=== PATIENT | male | born 1965 | race Caucasian/White ===

== ENCOUNTER 2018-02-18 15:56 | Inpatient (IN) | payer MEDICARE, OTHER ==
[2018-02-18 16:42] LABS: #Lymphocytes 0.8 thou/uL (1.20-3.40); #Monocytes 0.3 thou/uL (0.11-0.59); #Neutrophils 4.6 thou/uL (1.40-6.50); %Basophils 0.2 % (0.0-1.0); %Eosinophils 0.1 % (0.0-10.0); %Lymphocytes 14.7 % (21.0-51.0); %Monocytes 4.7 % (0.0-10.0); %Neutrophils 80.3 % (42.0-75.0); Hemoglobin 12.5 g/dL (14.0-18.0); Mean Corpuscular HGB CONC 35.1 g/dL (32.0-36.0); Mean Corpuscular Hemoglobin 32.8 pg (27.0-31.0); Mean Corpuscular Volume 93.3 fL (78.0-98.0); Mean Platelet Volume 9.1 fL (7.4-10.4); Platelet Count 174 thou/uL (130-400); RBC Distribution Width 12.5 % (11.5-14.5); Red Blood Cell (RBC) Count 3.81 mill/uL (4.70-6.10); White Blood Cell (WBC) Count 5.7 thou/uL (4.8-10.8)
[2018-02-18 16:43] LABS: Lactate 1.54 mmol/L (0.50-2.20)
--- NOTE | 2018-02-18 16:46 | RAD ---
CHEST ONE VIEW: 02/18/18 HISTORY: Chest pain and cough. COMPARISON: Radiograph 06/02/15. FINDINGS: There is severe dextroscoliosis. Left basilar air space opacity is new from the comparison examinatio n. Severe neurogenic changes of both shoulders. IMPRESSION: Findings concerning for left basilar pneumonia. POS: [facility]
[2018-02-18 16:55] LABS: ALT (SGPT) 34 U/L (8-55); AST (SGOT) 59 U/L (5-34); Albumin 4.1 g/dL (3.5-5.0); Alkaline Phosphatase 126 U/L (40-150); Anion Gap 19 mmol/L (10-20); BUN (Urea Nitrogen) 59 mg/dL (8.4-25.7); Bilirubin, Total 0.3 mg/dL (0.2-1.2); Calc. Creatinine Clearance 0 mL/min (70-130); Calcium 9.3 mg/dL (7.8-10.44); Carbon Dioxide 16 mmol/L (22-29); Chloride 102 mmol/L (98-107); Estimated GFR-MDRD 36; Globulin 4.3 g/dL (2.4-3.5); Glucose 125 mg/dL (70-105); Potassium 3.7 mmol/L (3.5-5.1); Protein, Total 8.4 g/dL (6.0-8.3); Sodium 133 mmol/L (136-145)
[2018-02-18 18:01] LABS: Bilirubin Negative (Negative); Blood, Urine Negative (Negative); Clarity CLEAR (Clear); Glucose, Urine (Dipstick) Negative (Negative); Leukocyte Negative (Negative); Nitrite Negative (Negative); Protein, Urine (Dipstick) 100 mg/dL (Neg-Trace); Specific Gravity, Urine 1.016 (1.002-1.036); Urobilinogen 0.2 mg/dL (0.2-1.0); pH, Urine 5.5 (5.0-9.0)
[2018-02-18 18:03] LABS: Bacteria/HPF None Seen HPF (None Seen); Hyaline Casts/LPF 7-10 HYALINE CAST LPF (0-3 Hyaline); Pathc Cast-AUWi Flag 1.74 (0-2.49); RBC/HPF 0-3 HPF (0-3)
[2018-02-18 18:05] LABS: Renal Epithelial None Seen HPF (0-3); Transitional Epithelial NONE SEEN HPF (0-3)
[2018-02-18] MEDS ORDERED: cefTRIAXone\\ROCEPHIN 1 GM VIAL ONE (18:30)
[2018-02-18] MEDS ORDERED: Azithromycin 500 MG VIAL ONE (18:30)
[2018-02-18] MEDS ORDERED: cefTRIAXone\\ROCEPHIN 500 MG VIAL ONE (18:30)
[2018-02-18] MEDS ORDERED: Oseltamivir 6 MG/ML ORAL SUSP PO SCH (18:45)
[2018-02-18] MEDS ORDERED: Acetaminophen 325 MG TAB ONE (19:46)
[2018-02-18] MEDS ORDERED: Ondansetron PF 4 MG/2 ML Vial IVP PRN (20:53)
[2018-02-18] MEDS ORDERED: Sodium Chloride 0.9% 1,000 ML IV SCH (20:53)
[2018-02-18] MEDS ORDERED: Ondansetron ODT 4 MG TAB SL PRN (20:53)
[2018-02-18] MEDS ORDERED: Acetaminophen 325 MG TAB PO PRN (20:53)
[2018-02-18 21:18] VITALS: BMI 16.6
[2018-02-19] MEDS ORDERED: Diabetic Tussin 200 MG/10 ML UDCUP PO PRN (04:59)
[2018-02-19] MEDS ORDERED: Bisacodyl 10 MG SUPP PR PRN (11:34)
[2018-02-19] MEDS ORDERED: Dextrose 50% Abboject 50 ML SYRINGE SLOW IVP PRN ×2 (11:42→13:54)
[2018-02-19] MEDS ORDERED: HumaLOG 300 UNITS/3 ML VIAL SC PRN (11:42)
[2018-02-19] MEDS ORDERED: Dextrose 5% in Water 1,000 ML IV PRN ×2 (11:42→13:54)
[2018-02-19] MEDS ORDERED: Acetaminophen 325 MG TAB PO PRN (13:55)
--- NOTE | 2018-02-19 17:55 | HP ---
CHIEF COMPLAINT: Cough. HISTORY OF PRESENT ILLNESS: This is a 52-year-old male admitting to the hospital because of cough and chills for approximately one week. The patient states that he also had some diarrhea, however, this has now resolved. The patient states that he has never had these symptoms before. Denies any alleviating or aggravating factors. Denies any other associated symptoms or complaints. Of note, the patient does have a growth abnormality and past medical history of hypertension, headaches, and arthritis. The patient is seen and examined in the hospital room. No family at bedside. ALLERGIES: TO ASPIRIN, CYCLOPHOSPHAMIDE, HYDROCODONE, AND PHENYTOIN. THE PATIENT IS NOT SURE WHAT HAPPENS WHEN HE TAKES ANY ONE OF THESE. REVIEW OF SYSTEMS: All systems reviewed. Pertinent positives in HPI, otherwise negative. FAMILY HISTORY: Noncontributory. SOCIAL HISTORY: Nondrinker, nonsmoker. HOME MEDICATIONS: See MAR. PHYSICAL EXAMINATION: VITAL SIGNS: Blood pressure 101/66, respiratory rate of 20, temperature 98.3, heart rate of 86. GENERAL: The patient lying in bed comfortably, in no distress. Body habitus appears to be that of individual with growth stunting. HEENT: Pupils equal, round, reactive to light and accommodation. Extraocular muscles intact. Oral cavity moist and pink. NECK: Supple, nontender. Mobile thyroid appreciated. CARDIOVASCULAR: Regular rate and rhythm. S1, S2. No murmurs, rubs, or gallops appreciated. PULMONARY: Coarse breath sounds bilaterally. No respiratory distress. No increase in AP diameter. ABDOMEN: Positive bowel sounds. Soft, nontender, nondistended. EXTREMITIES: 2+ peripheral pulses. No cyanosis, clubbing, or edema noted. Arthritis in bilateral hands. LABORATORY DATA: Lab michele, CBC normal. BMP abnormalities, creatinine 1.93. UA positive for some protein, otherwise negative. Chest x-ray shows left basilar pneumonia. ASSESSMENT AND PLAN: 1. Cough, shortness of breath, pneumonia. 2. Hypertension. 3. Arthritis. 4. Fever. PLAN: At this point in time, I am going to admit the patient to hospital floor and start IV antibiotics and IV fluids. Also obtain an echocardiogram and chest x-ray for tomorrow. Labs in a.m. Continue hydration. If renal function worsens, we will obtain renal ultrasound and consider renal consultation as well. The patient wishes to remain a full code at this point in time. We will adjust medical plan of care as the patient's condition progresses throughout his admission. Case and plan discussed with the patient at length. He understood and agreed with this plan. Job ID: [id number]
[2018-02-19] MEDS: Heparin 5,000 UNITS/ML VIAL SC SCH (20:08)
[2018-02-20 07:53] LABS: #Lymphocytes 1.3 thou/uL (1.20-3.40); #Monocytes 0.5 thou/uL (0.11-0.59); #Neutrophils 3.1 thou/uL (1.40-6.50); %Basophils 0.1 % (0.0-1.0); %Eosinophils 0.4 % (0.0-10.0); %Lymphocytes 25.8 % (21.0-51.0); %Monocytes 9.8 % (0.0-10.0); Hemoglobin 10.8 g/dL (14.0-18.0); Mean Corpuscular HGB CONC 34.5 g/dL (32.0-36.0); Mean Corpuscular Hemoglobin 32.4 pg (27.0-31.0); Mean Corpuscular Volume 93.9 fL (78.0-98.0); Mean Platelet Volume 8.5 fL (7.4-10.4); Platelet Count 214 thou/uL (130-400); RBC Distribution Width 12.5 % (11.5-14.5); Red Blood Cell (RBC) Count 3.33 mill/uL (4.70-6.10); White Blood Cell (WBC) Count 4.9 thou/uL (4.8-10.8)
[2018-02-20 08:18] LABS: Anion Gap 14 mmol/L (10-20); BUN (Urea Nitrogen) 11 mg/dL (8.4-25.7); Calc. Creatinine Clearance 61 mL/min (70-130); Calcium 8.5 mg/dL (7.8-10.44); Carbon Dioxide 19 mmol/L (22-29); Chloride 109 mmol/L (98-107); Estimated GFR-MDRD Greater than 90; Glucose 92 mg/dL (70-105); Potassium 3.1 mmol/L (3.5-5.1); Sodium 139 mmol/L (136-145)
[2018-02-20] MEDS: Oseltamivir 75 MG CAP PO SCH (08:38)
[2018-02-20] MEDS: Heparin 5,000 UNITS/ML VIAL SC SCH ×2 (08:39→20:33)
--- NOTE | 2018-02-20 08:49 | RAD ---
CHEST ONE VIEW: Indication: Cough. Comparison: 02-18-18 FINDINGS: Left basilar consolidation persist. Chronic lung changes and cardiomegaly are stable. Severe thoracol umbar scoliosis and diffuse osteopenia is similar. IMPRESSION: Stable left basilar pneumonia. POS: [facility]
--- NOTE | 2018-02-20 10:33 | PDOC.PN ---
- Subjective Encounter Start Date: 02/20/18 Encounter Start Time: 10:31 Subjective: still has cough and congestion - Objective MAR Reviewed: Yes Vital Signs & Weight: Vital Signs (12 hours) Temp Pulse Resp BP Pulse Ox 02/20/18 08:00 98.2 F 94 22 H 100/62 93 L Weight Weight 74 lb 3 oz I&O: 02/19/18 02/20/18 02/21/18 06:59 06:59 06:59 Intake Total 1470 960 Balance 1470 960 Result Diagrams: 02/20/18 07:22 02/20/18 07:22 Additional Labs: Accuchecks 02/19/18 02/19/18 16:50 12:03 POC Glucose 96 110 Phys Exam - Physical Examination Neck: no JVD rales, LLL Cardiovascular: RRR, no significant murmur Gastrointestinal: soft, positive bowel sounds Musculoskeletal: no edema Dx/Plan (1) Pneumonia Code(s): J18.9 - PNEUMONIA, UNSPECIFIED ORGANISM Status: Acute Qualifiers: Laterality: left Lung location: lower lobe of lung (2) Influenza Code(s): J11.1 - FLU DUE TO UNIDENTIFIED INFLUENZA VIRUS W OTH RESP MANIFEST Status: Acute Comment: A (3) HTN (hypertension) Code(s): I10 - ESSENTIAL (PRIMARY) HYPERTENSION Status: Acute (4) JRA (juvenile rheumatoid arthritis) Code(s): M08.00 - UNSP JUVENILE RHEUMATOID ARTHRITIS OF UNSPECIFIED SITE Status: Acute - Plan cont iv antibx, tamiflu -: probably home 1-3 days depending on clinical course * .
[2018-02-20] MEDS: Acetaminophen 325 MG/10.15 ML UDCUP PO PRN (17:00)
[2018-02-21] MEDS: Heparin 5,000 UNITS/ML VIAL SC SCH ×2 (07:22→21:25)
[2018-02-21] MEDS: Oseltamivir 75 MG CAP PO SCH (08:35)
--- NOTE | 2018-02-21 11:52 | PDOC.PN ---
- Subjective Encounter Start Date: 02/21/18 Encounter Start Time: 11:48 Subjective: feels better, still has some sob, cough - Objective MAR Reviewed: Yes Vital Signs & Weight: Vital Signs (12 hours) Temp Pulse Resp BP Pulse Ox 02/21/18 08:00 98.3 F 94 18 101/71 94 L Weight Admit Weight 74 lb Weight 74 lb 3 oz I&O: 02/20/18 02/21/18 02/22/18 06:59 06:59 06:59 Intake Total 960 1000 Balance 960 1000 Result Diagrams: 02/20/18 07:22 02/20/18 07:22 Additional Labs: Accuchecks 02/20/18 02/20/18 15:42 11:05 POC Glucose 112 H 111 H Phys Exam - Physical Examination Neck: no JVD rales L chest Cardiovascular: RRR, no significant murmur Gastrointestinal: soft, non-tender Musculoskeletal: no edema Dx/Plan (1) Pneumonia Code(s): J18.9 - PNEUMONIA, UNSPECIFIED ORGANISM Status: Acute Qualifiers: Laterality: left Lung location: lower lobe of lung (2) Influenza Code(s): J11.1 - FLU DUE TO UNIDENTIFIED INFLUENZA VIRUS W OTH RESP MANIFEST Status: Acute Comment: A (3) HTN (hypertension) Code(s): I10 - ESSENTIAL (PRIMARY) HYPERTENSION Status: Acute (4) JRA (juvenile rheumatoid arthritis) Code(s): M08.00 - UNSP JUVENILE RHEUMATOID ARTHRITIS OF UNSPECIFIED SITE Status: Acute - Plan cultures neg -: cont levaquin, tamiflu * .
--- NOTE | 2018-02-21 16:55 | PQF ---
CLINICAL DOCUMENTATION IMPROVEMENT CLARIFICATION FORM: ICD-10 Updated PLEASE DO AN ADDENDUM TO THE PROGRESS NOTE WITH ANY DOCUMENTATION UPDATES OR ADDITIONS AND CARRY THROUGH TO DC SUMMARY. THANK YOU. DATE: 02/21/2018 ATTN: Dr. Milton Please exercise your independent, professional judgment in responding to the clarification form. Clinical indicators are provided on the bottom of this form for your review Please check appropriate box(s): [ x ] Acute Renal Failure (ARF) / Acute Kidney Injury (ROSIO) [ ] Other Etiology or underlying conditions related to the diagnosis of ARF/ ROSIO: [ ] Other diagnosis [ ] Unable to determine In addition, please specify: Present on Admission (POA): [ x ] Yes [ ] No [ ] Unable to determine For continuity of documentation, please document condition throughout progress notes and discharge summary. Thank You. CLINICAL INDICATORS - SIGNS / SYMPTOMS/ LABS are present in the medical record: 02/18/2018 02/20/2018 Labs: Creatinine 1.93 0.66 Estimated GFR 36 > 90 RISKS: H&P 1/: Cough and chills for approximately one week. Also had some diarrhea, however this has now resolved. PN 02/20: Pneumonia. Influenza A. HTN. Juvenile Rheumatoid Arthritis. TREATMENT: H&P /: Continue hydration. If renal function worsens, we will obtain renal ultrasound and consider renal consultation as well. Order 02/18: Normal Saline IV 75 mls / hr. Dc'd 02/19/18. Thank you, Irina (This form is maintained as a part of the permanent medical record) 2015 [employer]. All Rights Reserved Irina Calixto RN, BSN [email or web address] Office: [phone] [facility]
[2018-02-21] MEDS: Acetaminophen 325 MG/10.15 ML UDCUP PO PRN (18:16)
[2018-02-22] MEDS: Heparin 5,000 UNITS/ML VIAL SC SCH (07:59)
[2018-02-22] MEDS: Oseltamivir 75 MG CAP PO SCH (07:59)
[2018-02-22 08:42] VITALS: BP 106/62; TEMP 98.1
--- NOTE | 2018-02-22 12:40 | DIS ---
DATE OF ADMISSION: 02/18/2018 DATE OF DISCHARGE: 02/22/2018 PRIMARY CARE PROVIDER: Dr. Ginna Guerrero. FINAL DIAGNOSES: 1. Pneumonia, probable strep pneumonia. 2. Acute influenza type A. 3. Hypertension. 4. Juvenile rheumatoid arthritis. 5. Acute kidney failure. DISCHARGE MEDICATIONS: 1. Levaquin 500 mg a day for 7 days. 2. Tamiflu 75 mg twice a day for 10 days total. 3. Amlodipine/valsartan 5/160 one a day. ALLERGIES: ALLERGIC TO DILANTIN, HYDROCODONE, CYTOXAN, AND ASPIRIN. PENDING AT TIME OF DISCHARGE: Blood cultures are no growth at 48 hours. Urine culture is no growth. DIET: Diet is heart healthy. CODE STATUS: Full. CONSULTATIONS: None. PROCEDURES: None. HOSPITAL COURSE: The patient was admitted to [facility] to [facility] with left basilar pneumonia, influenza A, hypertension, history of juvenile rheumatoid arthritis treated with Levaquin and Tamiflu. He has improved steadily during his hospital stay. He still has rales over his left lateral chest consistent with his initial chest x-ray demonstrating left lower lobe infiltrate. His CBC had a white cell count of 5.7 with absolute neutrophillia. with followup 4.9 with a normal differential. His chemistries, initial creatinine 1.93, which dropped to 0.66. He is currently doing well. Feeling better. Taking oral fluids and food. Vital signs are stable. Afebrile. He is being discharged to follow up with his primary care doctor in one week. Job ID: [id number] MTDD
== END 2018-02-22 14:52 | disposition home or self-care (01) | DRG 194 ==
LOC: ERS 15:56 → T4-A 20:42 → OBSVTOIN 20:42
PROVIDERS: ADMIT Family Medicine; ATTEND Family Medicine
DX: J13 Pneumonia due to Streptococcus pneumoniae (principal); N17.9 Acute kidney failure, unspecified; J10.08 Influenza due to other identified influenza virus with other specified pneumonia; I10 Essential (primary) hypertension; M08.00 Unspecified juvenile rheumatoid arthritis of unspecified site; Z88.5 Allergy status to narcotic agent; Z88.8 Allergy status to other drugs, medicaments and biological substances
CPT/HCPCS: 36415; 36416; 71045; 80048; 80053; 81003; 81015; 82947; 83605; 85025; 87040; 87086; 87804; 93005; 93306; 96361; 96365; 96367; J0456; J0696; J1644; J1956

== ENCOUNTER 2018-10-01 15:02 | Observation (INO) | payer MEDICARE, OTHER ==
[~2018-10-01 15:02] MED LIST: ISOVUE-370 76%-LOCM 1 ML ONE
[2018-10-01 16:21] LABS: #Basophils 0.1 thou/uL (0.0-0.2); #Eosinphils 0.6 thou/uL (0.0-0.7); #Lymphocytes 1.7 thou/uL (1.20-3.40); #Monocytes 0.9 thou/uL (0.11-0.59); #Neutrophils 6.8 thou/uL (1.40-6.50); %Basophils 0.6 % (0.0-1.0); %Lymphocytes 16.8 % (21.0-51.0); %Monocytes 8.8 % (0.0-10.0); %Neutrophils 67.8 % (42.0-75.0); Hemoglobin 12.1 g/dL (14.0-18.0); Mean Corpuscular HGB CONC 34.2 g/dL (32.0-36.0); Mean Corpuscular Hemoglobin 33.2 pg (27.0-31.0); Mean Corpuscular Volume 97.2 fL (78.0-98.0); Mean Platelet Volume 7.3 fL (7.4-10.4); Platelet Count 311 thou/uL (130-400); RBC Distribution Width 12.3 % (11.5-14.5); Red Blood Cell (RBC) Count 3.64 mill/uL (4.70-6.10)
[2018-10-01] MEDS ORDERED: Piperacillin/Tazobactam 4.5 GM VIAL ONE (16:32)
[2018-10-01 16:42] LABS: Bilirubin Negative (Negative); Blood, Urine Negative (Negative); Clarity Clear (Clear); Glucose, Urine (Dipstick) Normal (Negative); Leukocyte 75 Leu/uL (Negative); Nitrite Negative (Negative); Protein, Urine (Dipstick) 20 mg/dL (Neg-Trace); Squamous Epithelial 0-3 HPF (0-3); Urobilinogen Normal mg/dL (Less than 2)
[2018-10-01 16:44] LABS: ALT (SGPT) 7 U/L (8-55); AST (SGOT) 15 U/L (5-34); Albumin 4.1 g/dL (3.5-5.0); Alkaline Phosphatase 110 U/L (40-150); Anion Gap 13 mmol/L (10-20); BUN (Urea Nitrogen) 8 mg/dL (8.4-25.7); Bilirubin, Total 0.3 mg/dL (0.2-1.2); Calc. Creatinine Clearance 0 mL/min (70-130); Calcium 9.5 mg/dL (7.8-10.44); Carbon Dioxide 24 mmol/L (22-29); Chloride 105 mmol/L (98-107); Estimated GFR-MDRD Greater than 90; Globulin 3.3 g/dL (2.4-3.5); Glucose 92 mg/dL (70-105); Potassium 3.8 mmol/L (3.5-5.1); Protein, Total 7.4 g/dL (6.0-8.3); Sodium 138 mmol/L (136-145)
[2018-10-01 16:48] LABS: Bacteria/HPF 1+ HPF (None Seen); Calcium Oxalate Crystals 2+ HPF (None Seen); RBC/HPF None Seen HPF (0-3); WBC/HPF 0-3 HPF (0-3)
[2018-10-01] MEDS ORDERED: Vancomycin HCl 750 MG in Sodium Chloride 0.9% 250 ML 250 ML IVPB SCH (18:15)
--- NOTE | 2018-10-01 19:33 | HP ---
PRIMARY CARE PHYSICIAN: Dr. Marvin Benedict. CHIEF COMPLAINT: Severe itching and soreness in my scrotal area. HISTORY OF PRESENT ILLNESS: Mr. Thornton is a pleasant 53-year-old gentleman, who has fairly severe advanced rheumatoid arthritis. He says that he began having problems with his scrotal area on the 9th of this month. He has severe arthritis due to rheumatoid arthritis and has difficulty bending his neck or bending his torso and cannot really see what is going on. He has a provider, who comes in twice a day to help him with some of his activities of daily living including dressing himself. But he noticed that the itching got progressively worse. He says he tried applying some [place] cream himself there, but it started to get sore and started to extend on to the back of his legs. He did feel a bit sticky and says that he was hot and cold off and on, but no chad fever. No nausea. No vomiting. No abdominal pain, but he did come into the hospital, where he was found to have quite a bit of redness and excoriation in the scrotal area and is being admitted for scrotal cellulitis. He denies any dysuria or frequency. No nausea. No vomiting. No abdominal pain. REVIEW OF SYSTEMS: CONSTITUTIONAL: He did have some mild subjective fevers, chills. No night sweats. No weight loss. HEENT: No headaches. No dizziness. No visual changes. No sore throat or rhinorrhea. NECK: No neck pain. No adenopathy. PULMONARY: No hemoptysis. No cough. No wheezing. CARDIOVASCULAR: He denies any chest pain. No shortness of breath. No PND. No orthopnea. GASTROINTESTINAL: No abdominal pain. No nausea. No vomiting. No change in bowels. GENITOURINARY: He denies any urinary frequency. No dysuria. No discoloration of the urine. MUSCULOSKELETAL: He has severe limitation of his hands and legs as a result of the severe rheumatoid arthritis as well as significant contracture deformities. SKIN AND INTEGUMENT: No skin changes. No rash. PAST MEDICAL HISTORY: Significant for hypertension and severe rheumatoid arthritis. PAST SURGICAL HISTORY: He has had surgery on his right hand as well as both knees, but he says it was to remove, he says some buildup from the arthritis. He also had surgery for bladder stones. ALLERGIES: VICODIN, WHICH CAUSES SEVERE NAUSEA, ASPIRIN AND DILANTIN, BUT HE DOES NOT KNOW WHAT THESE DUE TO HIM. SOCIAL HISTORY: He is single. He lives alone. He has no children. His parents would be his surrogate decision maker. He has never thought about code status recently, but says he may have a DNR, but he would like to be a full code now. He is a nonsmoker and nondrinker and he has a provider or ointment mill tender, who comes in daily. FAMILY HISTORY: Significant for cancer and hypertension. MEDICATIONS: Include: 1. Tramadol. 2. Amlodipine. PHYSICAL EXAMINATION: GENERAL: He is alert and oriented. He appears to be in no acute distress. 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 VITAL SIGNS: Blood pressure 118/72, heart rate 105, respiratory rate of 22, and temperature is 100.3. HEENT: Pupils are equal, round, and reactive. Extraocular muscles are intact. His sclerae are anicteric. Throat, no erythema, no exudates. He has difficulty opening his jaw beyond about 30 to 40 degrees. I am unable to see the posterior pharynx. He has poor dentition. NECK: There is no adenopathy. No bruits. LUNGS: Clear to auscultation. There was no wheezing. No rales. No rhonchi. CARDIOVASCULAR: He has a normal S1 and S2. I did not appreciate an S3 or S4. No murmurs, clicks, or rubs. ABDOMEN: Soft. It is nontender and nondistended. Positive for bowel sounds. No rebound. No guarding. GENITOURINARY: I did have a research director, who is an RN here in the ER. He was able to be present during the entire exam and he had a complete view of the exam. There was increased redness in the perineal area as well as the scrotal area was beefy red and there is some maceration and a mild odor, but there was no fluctuance. No induration. No penile discharge. The area was slightly raised, but there were no open areas or ulcers. MUSCULOSKELETAL: He has some muscle atrophy in both his upper and lower extremities as well as contractures in the knees as well as he has severe deformities in both hands. SKIN AND INTEGUMENT: The skin changes in the scrotal area as previously mentioned. LABORATORY RESULTS: The white blood cell count is 10, hemoglobin 12.1, hematocrit is 35.4, platelet count is 311. Sodium 138, potassium 3.8, chloride is 105, CO2 is 24, BUN of 8, creatinine 0.62, and glucose is 92. Urinalysis was essentially negative. ASSESSMENT: This is a pleasant 53-year-old gentleman, who presents with scrotal itching and redness more than likely this represents a scrotal cellulitis. It is likely both bacterial as well as fungal as there are lots of maceration and moisture in the area and with the patient's severe contractures of his hands. I am suspecting that he has extreme difficulty with general hygiene. I asked him if his provider helps him with hygiene in the groin area and he says that he does not and he does this on his own, but just doing his hands in his general body habitus I find this very difficult to believe that he is able to do this effectively. Therefore, he will be admitted and placed on both antibacterial as well as antifungal medication. We will get a wound care consult to see if what additional recommendations there are and also do an assessment to see if he is capable of performing these actions on his own. 1. Hypertension. We will continue his usual antihypertensive medications as well as p.r.n. medicines for elevated blood pressure, and he will also be placed on deep venous thrombosis as well as gastrointestinal prophylaxis. Job ID: [id number]
--- NOTE | 2018-10-01 19:52 | CT ---
CT pelvis with contrast: DATE: 10/01/2018 HISTORY: 53-year-old male with erythema and drainage in the scrotum and buttock. FINDINGS: Bilateral femoral heads are small, flattened, and deformed. Bilateral protrusio acetabuli. Low attenuation, probably representing hydroceles, in the scrotum bilaterally. Increased enhancement of skin and subcutaneous soft tissues of the perineum. Edema throughout the penis. Calcifications of prostate gland. Urinary bladder is mildly distended but otherwise unremarkable. Mild circumferenti al edema in the ischio rectal fossa, but no discrete intrapelvic fluid collection or free fluid. Sigmoid colonic diverticulosis without convincing evidence of diverticulitis. No discrete abscess. No subcutaneous emphysema. Diffuse osteopenia. Gracile femoral shafts and iliac wings. IMPRESSION: 1. Bilateral scrotal hydroceles. 2. Diffuse edema of scrotum and surrounding soft tissues. 3. No drainable abscess. 4. Chronic osseous changes suggestive of long-term paraplegia or quadriplegia.
[2018-10-01] MEDS ORDERED: cefTRIAXone\\ROCEPHIN 1 GM in Sodium Chloride 0.9% 100 ML IVPB SCH (20:00)
[2018-10-01] MEDS ORDERED: hydrALAZINE 20 MG/ML VIAL SLOW IVP PRN (20:04)
[2018-10-01] MEDS ORDERED: Acetaminophen 325 MG TAB PO PRN (20:04)
[2018-10-01] MEDS ORDERED: Clotrimazole 2% 3 Day Vag Cr 22.2 GM TUBE VAG SCH (21:00)
[2018-10-01 21:04] VITALS: BMI 18.6
[2018-10-01] MEDS: Famotidine 20 MG TAB PO SCH (21:48)
[2018-10-02 06:20] LABS: #Basophils 0.1 thou/uL (0.0-0.2); #Eosinphils 0.6 thou/uL (0.0-0.7); #Lymphocytes 1.4 thou/uL (1.20-3.40); #Monocytes 0.6 thou/uL (0.11-0.59); #Neutrophils 4.9 thou/uL (1.40-6.50); %Basophils 0.8 % (0.0-1.0); %Eosinophils 8.1 % (0.0-10.0); %Monocytes 8.3 % (0.0-10.0); %Neutrophils 64.8 % (42.0-75.0); Hemoglobin 11.1 g/dL (14.0-18.0); Mean Corpuscular HGB CONC 33.8 g/dL (32.0-36.0); Mean Corpuscular Volume 97.6 fL (78.0-98.0); Mean Platelet Volume 7.5 fL (7.4-10.4); Platelet Count 277 thou/uL (130-400); RBC Distribution Width 12.3 % (11.5-14.5); Red Blood Cell (RBC) Count 3.37 mill/uL (4.70-6.10); White Blood Cell (WBC) Count 7.6 thou/uL (4.8-10.8)
[2018-10-02 06:38] LABS: Anion Gap 13 mmol/L (10-20); BUN (Urea Nitrogen) 5 mg/dL (8.4-25.7); Calc. Creatinine Clearance 73 mL/min (70-130); Calcium 8.4 mg/dL (7.8-10.44); Carbon Dioxide 23 mmol/L (22-29); Chloride 110 mmol/L (98-107); Estimated GFR-MDRD Greater than 90; Glucose 83 mg/dL (70-105); Potassium 3.6 mmol/L (3.5-5.1); Sodium 142 mmol/L (136-145)
[2018-10-02] MEDS: Famotidine 20 MG TAB PO SCH (08:42)
[2018-10-02] MEDS ORDERED: Enoxaparin Sodium 40 MG/0.4 ML SYRINGE SC SCH (09:00)
[2018-10-02] MEDS ORDERED: Fluconazole 100 MG TAB PO SCH (09:00)
[2018-10-02 12:50] VITALS: BP 123/77; TEMP 98.8
--- NOTE | 2018-10-02 13:44 | PDOC.HOSPP ---
- Subjective Encounter Date: 10/02/18 Encounter Time: 13:42 Subjective: was seen today in follow-up of groin cellulitis. He says the itching is much better. No new complaints. - Objective Vital Signs & Weight: Vital Signs (12 hours) Temp Pulse Resp BP BP Pulse Ox 10/02/18 12:49 98.8 F 92 20 123/77 100 10/02/18 08:36 98.2 F 94 16 100/65 100 10/02/18 08:16 98.2 F 94 16 100/65 100 10/02/18 08:00 98.2 F 94 16 100/65 100 10/02/18 04:11 98.3 F 92 16 113/75 100 Weight Weight 80 lb 6.4 oz I&O: 10/01/18 10/02/18 10/03/18 06:59 06:59 06:59 Intake Total 100 Balance 100 Result Diagrams: 10/02/18 05:57 10/02/18 05:57 ROS - Medication Medications: Active Medications Generic Name Dose Route Start Last Admin Trade Name Luisa PRN Reason Stop Dose Admin Acetaminophen 650 mg 10/01/18 20:04 10/02/18 01:07 Tylenol PO 650 mg Q4H PRN Administration Headache/Fever/Mild Pain (1-3) Clotrimazole 22.2 gm 10/01/18 21:00 10/01/18 21:48 Clotrimazole 2% 3 Day Vag Cr VAG 1 gr HS MELISSA Administration Enoxaparin Sodium 40 mg 10/02/18 09:00 10/02/18 08:47 Lovenox SC Not Given 09 MELISSA Famotidine 20 mg 10/01/18 21:00 10/02/18 08:42 Pepcid PO 20 mg BID MELISSA Administration Fluconazole 100 mg 10/02/18 09:00 10/02/18 08:42 Diflucan PO 100 mg DAILY MELISSA Administration Ceftriaxone Sodium 1 gm/ 100 mls @ 200 mls/hr 10/01/18 20:00 10/01/18 21:48 Sodium Chloride IVPB 100 mls Q24HR MELISSA Administration - Exam Eye: PERRL, anicteric sclera Heart: RRR, no murmur, no gallops, no rubs, normal peripheral pulses Respiratory: CTAB, no wheezes, no rales, no ronchi, normal chest expansion Gastrointestinal: soft, non-tender, non-distended, normal bowel sounds Skin: normal turgor (+ erythema of the scrotum and medial thigh, less red than yesterday, and decreased masceration) Hosp A/P (1) Intertrigo Code(s): L30.4 - ERYTHEMA INTERTRIGO Status: Acute (2) HTN (hypertension) Code(s): I10 - ESSENTIAL (PRIMARY) HYPERTENSION Status: Chronic (3) JRA (juvenile rheumatoid arthritis) Code(s): M08.00 - UNSP JUVENILE RHEUMATOID ARTHRITIS OF UNSPECIFIED SITE Status: Chronic - Plan * Severe Intertrigo- continue Nystatin cream and local care * JRA- he has been left with severe contracture of both upper and lower extremities * He is stable for discharge- I have discussed the need for the patient to allow his provider to help in per-hygiene. I spoke with his caregiver over the phone- Nneka, and discussed instructions on how to apply the cream, and allowing some air to get to the area. * Stable for discharge home
--- NOTE | 2018-10-03 01:53 | DIS ---
DATE OF ADMISSION: 10/01/2018 DATE OF DISCHARGE: 10/02/2018 PRIMARY CARE PHYSICIAN: Dr. Marvin Benedict. DISCHARGE DISPOSITION: Home. DISCHARGE DIAGNOSES: 1. Severe intertrigo. 2. Juvenile rheumatoid arthritis. 3. Hypertension. DISCHARGE MEDICATIONS: Include: 1. Nystatin cream apply to affected area twice daily. 2. Tramadol 50 mg twice a day as needed. 3. Ibuprofen 200 mg twice daily. 4. Acetaminophen butalbital 1 tablet daily. 5. Amlodipine 5/160 one tablet daily. 6. Acetaminophen 500 mg as needed. PROCEDURES DONE DURING THE ADMISSION: The patient had a CT scan of the pelvis showing some scrotal hydroceles. There is some diffuse edema of the scrotum, but there was no abscess. CODE STATUS: Full code. ALLERGIES: TO ASPIRIN, CYCLOPHOSPHAMIDE, HYDROCODONE, AND PHENYTOIN. HOSPITAL COURSE: Mr. Thornton is a pleasant 53-year-old gentleman, who presented to the emergency room complaining of severe itching in the scrotal area. He was found to have a fungal infection in that area, likely due to excess moisture. He was treated with oral Diflucan, as well as nystatin cream with actual good improvement overnight. He was also treated with IV antibiotic as well. However, I doubt that there was very much bacterial superinfection. Given his severe rheumatoid arthritis, it is suspected that he has difficulty with hygiene in this area. I spoke with his provider over the phone, Nneka, who was very willing to assist in hygiene in this area. She has offered to do it in the past. The patient seemed a little shy about this, but he did agree to allow his caregiver to provide this service. The patient is therefore stable for discharge and to have close outpatient followup. Job ID: [id number]
== END 2018-10-02 15:34 | disposition home or self-care (01) ==
LOC: ERS 15:02 → T4-B 17:00 → INTOOBSV 17:00 → OBSVTOIN 17:00
PROVIDERS: ADMIT Internal Medicine; ATTEND Internal Medicine
DX: L30.4 Erythema intertrigo (principal); M08.00 Unspecified juvenile rheumatoid arthritis of unspecified site; I10 Essential (primary) hypertension; Z88.6 Allergy status to analgesic agent; Z88.5 Allergy status to narcotic agent; Z88.8 Allergy status to other drugs, medicaments and biological substances; Z79.82 Long term (current) use of aspirin; Z79.899 Other long term (current) drug therapy
CPT/HCPCS: 72193; 80048; 80053; 83605; 85025 ×2; 87040; 96365; 96367 ×2; 97139 ×3; 99284; G0378 ×2; 36415; 81003; 81015; J0696; J1650; J2543; J3370; J3490; J7050; Q9966

== ENCOUNTER 2018-10-13 09:56 | Emergency (ER) | payer MEDICARE, OTHER | END 2018-10-13 11:29 | disposition home or self-care (01) | LOC: ERS 09:56 | DX: B35.6 Tinea cruris (principal); I10 Essential (primary) hypertension; M06.9 Rheumatoid arthritis, unspecified; Z79.899 Other long term (current) drug therapy | CPT/HCPCS: 99282 ==